=== PATIENT | female | born 1965 | race African-American/Black ===

== ENCOUNTER 2017-03-06 14:03 | Emergency (ER) | payer OTHER ==
[~2017-03-06] VITALS: Ht 157.5 cm; Wt 83.9 kg
--- NOTE | 2017-03-06 14:28 | NUR ---
PT BIB SELF C/OLEFT ARM, LEFT LEG, SHOULDERS PAIN S/P TREE FELL ON BACK LAST NIGHT. AWAITING MD ORDER
[2017-03-06] MEDS ORDERED: IBUPROFEN 600 MG TABLET PO ONE ×2 (14:50→15:00)
[2017-03-06 15:30] VITALS: BP 120/86
--- NOTE | 2017-03-06 15:30 | NUR ---
Patient discharged to home in stable condition. Written and verbal after care instructions given. Patient verbalizes understanding of instruction.
== END 2017-03-06 15:30 | disposition home or self-care (01) ==
LOC: ER 14:05
DX: S40.012A Contusion of left shoulder, initial encounter (principal); S40.022A Contusion of left upper arm, initial encounter; S50.812A Abrasion of left forearm, initial encounter; I10 Essential (primary) hypertension; J45.909 Unspecified asthma, uncomplicated; Z98.86 Personal history of breast implant removal; Z98.890 Other specified postprocedural states; Z88.1 Allergy status to other antibiotic agents; W20.8XXA Other cause of strike by thrown, projected or falling object, initial encounter; Y93.89 Activity, other specified; Y92.89 Other specified places as the place of occurrence of the external cause; Y99.8 Other external cause status
CPT/HCPCS: 73030; 73060; 99284; A4606; Z7610

== ENCOUNTER 2018-11-25 14:14 | Emergency (ER) | payer SELFPAY | END 2018-11-25 16:24 | disposition home or self-care (01) | LOC: ER 14:17 | DX: S92.352A Displaced fracture of fifth metatarsal bone, left foot, initial encounter for closed fracture (principal); I10 Essential (primary) hypertension; J45.909 Unspecified asthma, uncomplicated; Z98.890 Other specified postprocedural states; Z88.8 Allergy status to other drugs, medicaments and biological substances; W01.0XXA Fall on same level from slipping, tripping and stumbling without subsequent striking against object, initial encounter; Y93.89 Activity, other specified; Y92.89 Other specified places as the place of occurrence of the external cause; Y99.8 Other external cause status | CPT/HCPCS: 73630-TC ==